=== PATIENT | female | born 1965 | race Caucasian/White ===

== ENCOUNTER 2019-08-08 17:19 | Emergency (ER) | payer MEDICAID ==
[~2019-08-08] VITALS: Ht 165.1 cm; Wt 50.0 kg
[2019-08-08 17:37] VITALS: BP 98/72
== END 2019-08-08 18:15 | disposition left against medical advice (07) ==
LOC: ER 17:19
DX: F91.1 Conduct disorder, childhood-onset type (principal); R56.9 Unspecified convulsions; Z86.19 Personal history of other infectious and parasitic diseases
CPT/HCPCS: 99283

== ENCOUNTER 2023-08-25 21:39 | Emergency (ER) | payer MEDICAID ==
[~2023-08-25] VITALS: Ht 167.6 cm; Wt 73.0 kg
[2023-08-25 21:48] VITALS: BP 134/82; PULSE 93; RESP 16; TEMP 98.4; O2SAT 95
[2023-08-26] MEDS ORDERED: HALO5TAB2 MT (01:48)
[2023-08-26] MEDS ORDERED: BENZ1TAB78 MT (01:48)
[2023-08-26] MEDS ORDERED: DEPER5 MT (01:48)
[2023-08-26] MEDS ORDERED: PHEN100C4 MT (01:48)
[2023-08-26] MEDS ORDERED: QUET300T20 MT (01:48)
[2023-08-26] MEDS ORDERED: DIVALPROEX SODIUM 250MG ER TABLET PO ONE (02:00)
== END 2023-08-26 02:00 | disposition home or self-care (01) ==
LOC: ER 21:39
DX: F20.9 Schizophrenia, unspecified (principal); F31.9 Bipolar disorder, unspecified; Z79.899 Other long term (current) drug therapy; Z76.0 Encounter for issue of repeat prescription
CPT/HCPCS: 99283